=== PATIENT | female | born 1975 | race African-American/Black ===

== ENCOUNTER 2019-12-07 17:06 | Emergency (ER) | payer OTHER ==
[2019-12-07 17:11] VITALS: BMI 33.9
[2019-12-07 17:23] VITALS: BP 107/72; PULSE 58; TEMP 98.1
--- NOTE | 2019-12-07 17:41 | PDOC ---
History of Present Illness - General Chief Complaint: Cold Symptoms Stated Complaint: prod cough History Source: Patient Exam Limitations: No Limitations - History of Present Illness Initial Comments: 12/07/19 17:38 44 yo F with c/o cough for 3 weeks. initially was improved but then returned one week ago. pt report fever 3 days ago, but afebrile since. cough is productive for yellow white phelgm. no longer having fevers. no sob. no n/v missed work today. no rash. no known sick contacts. did get her flu vaccine. no cp no other complaints. Past History - Past Medical History Allergies/Adverse Reactions: Allergies Allergy/AdvReac Type Severity Reaction Status Date / Time No Known Allergies Allergy Verified 12/07/19 17:07 Home Medications: Ambulatory Orders Albuterol Sulfate Inhaler - [Ventolin HFA Inhaler -] 2 inh PO Q4H PRN #1 inh Azithromycin [Zithromax 250mg Tablets -] 250 mg PO DAILY #6 tab 12/07/19 COPD: No CHF: No Other medical history: denies - Psycho Social/Smoking Cessation Hx Smoking History: Never smoked Hx Alcohol Use: No Drug/Substance Use Hx: No Review of Systems - Review of Systems Constitutional: Yes: Chills, Fever HEENTM: No: Eye Pain, Blurred Vision Respiratory: Yes: Cough, Productive cough. No: Shortness of Breath Cardiac (ROS): No: Chest Pain : No: Burning, Dysuria Musculoskeletal: No: Back Pain Integumentary: No: Bruising All Other Systems: Reviewed and Negative *Physical Exam - Vital Signs Last Vital Signs Temp Pulse Resp BP Pulse Ox 98.1 F 58 L 18 107/72 97 12/07/19 17:07 12/07/19 17:07 12/07/19 17:07 12/07/19 17:07 12/07/19 17:07 - Physical Exam 12/07/19 17:40 awake alert lungs clear no wheezing. no crackles heart rrr no mrg abd soft nt nd ext wwp. no edema. no calf tendernss. Medical Decision Making - Medical Decision Making 12/07/19 17:41 44 yo F with cough productive phelgm. differential bronchitis, viral , pneuonia vs. flu. plan cxr pa / lat r/o pneuonia. duoneb. reassess. Discharge - Discharge Information Problems reviewed: Yes Clinical Impression/Diagnosis: Bronchitis Condition: Improved Disposition: HOME - Admission No - Additional Discharge Information Prescriptions: Albuterol Sulfate Inhaler - [Ventolin HFA Inhaler -] 2 inh PO Q4H PRN #1 inh PRN Reason: Wheezing Azithromycin [Zithromax 250mg Tablets -] 250 mg PO DAILY #6 tab - Follow up/Referral - Patient Discharge Instructions Patient Printed Discharge Instructions: DI for Acute Bronchitis Additional Instructions: you have bronchitis. you can take antibiotic azithromycin 500 mg on day one, followed by 250 mg on days 2 - 5. follow up with your primary doctor. you can also use albuterol inhaler 2 puffs every 4 hours as needed for cough or wheezing. follow up with your primary doctor. return for worsening shortness of breath, fever, vomiting or any concerns. - Post Discharge Activity
[2019-12-07] MEDS ORDERED: ALBUTEROL SO4 2.5/IPRATROPIUM 0.5 INH SOL 3 ML VIAL.NEB. NEB ONE ×2 (17:42→17:50)
[2019-12-07] MEDS ORDERED: IBUPROFEN 600 MG TABLET (FP) PO ONE ×2 (17:42→17:50)
== END 2019-12-07 18:42 | disposition home or self-care (01) ==
LOC: FER 17:06
PROC: 3E0F7GC Introduction of Other Therapeutic Substance into Respiratory Tract, Via Natural or Artificial Opening (ICD-10-PCS; principal; 2019-12-07)
DX: J40 Bronchitis, not specified as acute or chronic (principal)
CPT/HCPCS: 71046-TC-FY; 99281-25